=== PATIENT | male | born 1950 | race Caucasian/White ===

== ENCOUNTER → 2016-05-12 | Outpatient (CLI) | payer OTHER, MEDICARE ==
--- NOTE | 2016-05-12 10:33 | DX ---
Bilateral Hands, Two Views Each. History: Pain. Comparison: November 2014. Findings: There is normal underlying mineralization. There is joint narrowing and periarticular spurr ing at the third metacarpophalangeal joint bilaterally with subarticular sclerosis, stable in appeara nce. Subcortical cyst is seen in the right third metacarpal head. No significant change. Slight joint narrowing at the second metacarpophalangeal joint on the right is unchanged. Mild subarticular scler osis and minimal spurring are seen of the first metacarpophalangeal joint bilaterally, unchanged. Mor e severe degenerative change is seen at the first carpometacarpal joint bilaterally with subarticular sclerosis and periarticular spurring but with a similar appearance. Subcortical cyst or less likely erosion is seen in the distal aspect of the third proximal phalanx on the right and the middle phalan x, similar in appearance. Impression: Moderate degenerative change at the first carpometacarpal joint bilaterally stable in [place] earance. Degenerative change at the third metacarpophalangeal joint bilaterally and first metacarpoph alangeal joint.
== END ==
LOC: BMCIMAGING 09:39
PROVIDERS: ATTEND Internal Medicine Rheumatology
DX: M18.0 Bilateral primary osteoarthritis of first carpometacarpal joints (principal)